=== PATIENT | female | born 1995 | race Caucasian/White ===

== ENCOUNTER 2017-04-17 17:40 | Emergency (ER) | payer BC ==
[2017-04-17 19:15] VITALS: BP 165/83
[2017-04-17] MEDS ORDERED: Erythromycin OPTH OINT* APPLIC OINT BOTH EYES ONE (19:20)
--- NOTE | 2017-04-17 19:25 | ED ---
Throat Pain/Nasal Congestion - HPI Summary HPI Summary: 21F presents with bilateral eye pain after exposure to garlic flumes. She states her eyes have been itchy, burning and watery. She tried rinsing her eyes , Benadryl without relief. She states she feels that her left is worst that the right and that she might have scratched her eye. She denies every having this reaction before. She denies any sob, chest pain, or difficulty swallowing. She does not wear contacts. She admits to photophobia and blurried vision. - History of Current Complaint Chief Complaint: EDEyeProblem Time Seen by Provider: 04/17/17 18:19 - Allergies/Home Medications Allergies/Adverse Reactions: Allergies Allergy/AdvReac Type Severity Reaction Status Date / Time No Known Allergies Allergy Verified 04/17/17 17:47 PMH/Surg Hx/FS Hx/Imm Hx - Immunization History Date of Tetanus Vaccine: within two years Infectious Disease History: No Infectious Disease History: Denies: Traveled Outside the [place] in Last 30 Days - Social History Alcohol Use: Rare Substance Use Type: Reports: None Smoking Status (MU): Light Every Day Tobacco Smoker Review of Systems Negative: Fever Positive: Photophobia, Blurred Vision, Drainage Negative: Chest Pain Negative: Shortness Of Breath All Other Systems Reviewed And Are Negative: Yes Physical Exam Triage Information Reviewed: Yes Vital Signs On Initial Exam: Initial Vitals Temp Pulse Resp BP Pulse Ox 97 F 67 18 135/83 98 04/17/17 17:47 04/17/17 17:47 04/17/17 17:47 04/17/17 17:47 04/17/17 17:47 Vital Signs Reviewed: Yes Appearance: Positive: Well-Appearing Skin: Positive: Warm, Dry Head/Face: Positive: Normal Head/Face Inspection Eyes: Positive: EOMI, GEOVANNA, Conjunctiva Inflammed, Other: - 1mm abrasion of left eye in middle ENT: Positive: Normal ENT inspection, Pharynx normal, TMs normal Respiratory/Lung Sounds: Positive: Clear to Auscultation, Breath Sounds Present Cardiovascular: Positive: Normal, RRR Diagnostics - Vital Signs Vital Signs Temp Pulse Resp BP Pulse Ox 04/17/17 19:13 98.7 F 83 18 165/83 98 04/17/17 17:47 97 F 67 18 135/83 98 - Laboratory Lab Statement: Any lab studies that have been ordered have been reviewed, and results considered in the medical decision making process. EENT Course/Dx - Course Course Of Treatment: 21F presents with bilateral eye pain after exposure to garlic flumes. She states her eyes have been itchy, burning and watery. She tried rinsing her eyes, bendaryl without relief. She states she feels that her left is worst that the right and that she might have scratched her eye. She denies every having this reaction before. She denies any sob, chest pain, or difficulty swallowing. She does not wear contacts. on exam left eye has corneal abrasion, will treat with erythromycin and azelastine for potential allergic symptoms? told to follow up with optho. patient understands and agrees with plan. - Differential Diagnoses Differential Diagnoses: Allergic Rhinitis, Conjunctivitis, Corneal Abrasion, Other - scerlitis - Diagnoses Provider Diagnoses: corneal abrasion left eye, Irritation of both eyes Discharge - Discharge Plan Condition: Good Disposition: HOME Prescriptions: Azelastine 0.05% (OPHTH)(NF) [Optivar 0.05% (NF)] 1 drop BOTH EYES BID #1 btl Patient Education Materials: Corneal Abrasion (ED) Referrals: Non Staff,Doctor [Primary Care Provider] - Raz Miranda MD [Medical Doctor] - Additional Instructions: Place ointment on eye three times a day for 5 days Use antihistamine drops twice a day Take Benadryl every 6 hours Use artificial tears or saline to rinse eye for symptomatic relief Take Tylenol or ibuprofen for pain Follow up with ophthalmology in 5 days Return to ED if develop any new or worsening symptoms
== END 2017-04-17 19:52 | disposition home or self-care (01) ==
LOC: ED 17:40
DX: S05.02XA Injury of conjunctiva and corneal abrasion without foreign body, left eye, initial encounter (principal); X58.XXXA Exposure to other specified factors, initial encounter; Y93.9 Activity, unspecified; Y92.9 Unspecified place or not applicable; F17.210 Nicotine dependence, cigarettes, uncomplicated
CPT/HCPCS: 99282; A9270-GY